=== PATIENT | male | born 1985 | race Caucasian/White ===

== ENCOUNTER 2024-03-05 11:02 | Emergency (ER) | payer BC, SELFPAY ==
[2024-03-05 11:08] VITALS: BP 153/104
[2024-03-05 11:56] VITALS: BMI 28.9
[2024-03-05] MEDS: ZOFRAN 4 MG IV (11:56)
[2024-03-05] MEDS: DILAUDID 1 MG IV (11:57)
[2024-03-05] MEDS: NSS 1000 IV (12:00)
[2024-03-05 12:14] LABS: % Basophils 0.8 % (0-2); % Eosinophils 1.7 % (0-6); % Immature Granulocytes 1.5 % (0-0.5); % Monocytes 6.2 % (1.7-9.3); % Neutrophils 62.8 % (42.2-75.2); Absolute Basophils 0.1 10^3/uL (0-0.2); Absolute Eosinophils 0.1 10^3/uL (0-0.7); Absolute Immature Granulocytes 0.1 10^3/uL (0-0.05); Absolute Lymphocytes 1.9 10^3/uL (1.2-3.4); Absolute Monocytes 0.4 10^3/uL (0.1-0.6); Absolute Neutrophils 4.5 10^3/uL (1.4-6.5); Hematocrit 43.5 % (39.0-52.0); Hemoglobin 15.6 g/dL (13.0-18.0); Mean Corp Hgb Conc. 35.9 g/dL (33.0-37.0); Mean Corpuscular Volume 83.7 fL (80.0-94.0); Mean Platelet Volume 10.5 fL (7.4-10.4); Nucleated Red Blood Cells % 0 % (-); Platelet Count 266 10^3/uL (130-400); Red Cell Dist. Width 12.1 % (11.5-14.5); White Blood Cell Count 7.1 10^3/uL (4.8-10.8)
[2024-03-05] MEDS: TORADOL 15 MG IV (12:33)
[2024-03-05 12:36] LABS: ALT (SGPT) 46 U/L (0-50); AST (SGOT) 34 U/L (17-59); Albumin 4.8 g/dl (3.5-5.0); Alkaline Phosphatase 78 U/L (38-126); Blood Urea Nitrogen 12 mg/dl (9-20); Calcium 9.3 mg/dl (8.4-10.2); Carbon Dioxide 28 mmol/L (22-30); Chloride 102 mmol/L (98-107); Estimated Creatinine Clearance > 125 ml/min; Glucose 99 mg/dl (70-99); Potassium 4.8 mmol/L (3.5-5.1); Sodium 141 mmol/L (135-145); Total Bilirubin 1.1 mg/dl (0.2-1.3); Total Protein 7.4 g/dl (6.3-8.2); eGFR > 60.00
[2024-03-05 12:44] VITALS: BP 127/88
[2024-03-05 12:44] LABS: Urine Albumin Trace (Neg - Trace); Urine Bilirubin Negative (Negative); Urine Character Slightly Cloudy (Clear); Urine Color Amber; Urine Glucose Negative (Negative); Urine Ketone Negative (Negative); Urine Leukocyte Trace (Negative); Urine Nitrite Negative (Negative); Urine Occult Blood 4+ (Negative); Urine Urobilinogen Negative (Neg - 1+)
--- NOTE | 2024-03-05 13:00 | ED.GENMED ---
History of Present Illness
General
Chief Complaint: Abdominal Pain
Source: patient
Exam Limitations: none
Time Seen by Provider: 03/05/24 11:51
Nursing documentation reviewed up to this point in time: agreed with
History of Present Illness
History of Present Illness:
38-year-old male with no reported chronic issues presents to the emergency room for evaluation of abdominal pain. Patient reports pain started rather suddenly yesterday and has been constant since that time although waxing waning intensity. Pain
is in the left lower abdomen radiates across lower abdomen and into the pelvis and towards the tip of his penis. No clear triggering or relieving factors noted. He denies any associated dysuria, hematuria, change in urinary frequency. He denies
any fevers or chills. He has had mild nausea but denies any vomiting or diarrhea/constipation. Denies any scrotal pain or swelling. He denies similar symptoms in the past.
Review of Systems
Review of Systems
All Other Systems: ROS reviewed and negative except as documented in HPI and ROS
Constitutional: Denies fever or chills
Respiratory: Denies trouble breathing
Cardiac: Denies chest pain
ABD/GI: Reports abdominal pain and nausea; Denies vomiting
: Denies dysuria, frequency or flank pain
Musculoskeletal: Denies neck pain or back pain
Neurological: Denies dizzy or headache
Phy Exam
Physical Exam
Physical Exam:
General: Awake, alert, oriented x3; patient appears uncomfortable, cannot find a position of comfort in the room
Head: Normocephalic, atraumatic
Eyes: Conjunctiva normal
Throat: Airway intact, handling secretions
Neck: Trachea midline, supple without meningismus
Lungs: Clear to auscultation bilaterally, no wheezing, rales, rhonchi
Heart: Regular rate and rhythm, no murmurs, gallops, or rubs
Abd: Soft, non distended, minimally tender left lower quadrant
: No scrotal swelling, normal testicular lie, no testicular tenderness, no hernia
Back: No CVA tenderness
Neuro: No gross deficits
Extremities: Warm well-perfused
Scores
Heart Failure Risk
Heart Failure Risk Score: Not Applicable
Heart Score for Chest Pain Patients
STEMI patient?: Not applicable
Withdrawal Assessment of Alcohol
Withdrawal Assessment Completed?: Not applicable
Course
Orders/Labs/Results
Orders:
Orders
03/05/24 11:51
HYDROmorphone [Dilaudid] 1 mg IV NOW STA
Ondansetron Injectable [Zofran] 4 mg IV NOW STA
03/05/24 11:52
CT Abd/pel Without Iv Or Oral Urgent
Comment:
Reason For Exam: lower abd pain
0.9% Sodium Chloride 1000 ml [Nss] 1,000 ml IV BOLUS
03/05/24 11:56
Complete Blood Count/With Diff Urgent
Comprehensive Metabolic Panel Urgent
03/05/24 12:04
Urinalysis Reflex To Culture Urgent
Date Specimen was Collected: 03/05/24
Time Specimen was Collected: 12:03
Urine Microscopic Reflex Cult Urgent
03/05/24 12:31
Ketorolac [Toradol] 15 mg IV NOW STA
Abnormal Lab Results
03/05/24 03/05/24
11:56 12:04
MPV 10.5 H fL
(7.4-10.4)
Abs Immat Gran (auto) 0.1 H 10^3/uL
(0-0.05)
Immature Gran % 1.5 H %
(0-0.5)
Ur Occult Blood Reflex 4+ A
(Negative)
Leukocyte Esterase Rfl Trace A
(Negative)
Urine RBC >100 A /HPF
(0-2)
03/05/24 11:56
03/05/24 11:56
Vital Signs
Initial and Last Documented VS:
Initial Vital Signs
Temp Pulse Resp BP Pulse Ox
36.5 C 67 16 153/104 99
03/05/24 11:08 03/05/24 11:08 03/05/24 11:08 03/05/24 11:08 03/05/24 11:08
Last Documented Vital Signs
Temp Pulse Resp BP Pulse Ox
36.5 C 67 16 127/88 99
03/05/24 11:08 03/05/24 11:08 03/05/24 11:08 03/05/24 12:44 03/05/24 12:46
MDM/Problems Addressed
Differential Diagnosis Includes:
Nephrolithiasis, diverticulitis, UTI
MDM/Problems Addressed:
38-year-old male presents for evaluation of abdominal pain left lower quadrant radiates towards the groin/tip of the penis. Hypertensive otherwise normal vitals. Exam as above. Clinical appearance consistent with nephrolithiasis. Will place an IV
check labs including CBC and a CMP, check urinalysis. Will treat pain provide some antiemetic, IV fluids. Reassess after the above.
Labs reviewed: CBC unremarkable, CMP no clinically significant abnormalities�notably normal creatinine. Urinalysis negative for infection but positive for blood. Awaiting results of CT.
CT shows 3 mm obstructive stone left UVJ. Vital stable, pain controlled, normal renal function, not septic. Reasonable candidate for discharge for trial of passage. Advised to drink plenty of fluids, Flomax, pain control. Strainer provided. All
questions answered.
Acute Exacerbation and/or Progression of Chronic Illness:
Acutely hypertensive likely pain related�improved with pain control, continue to monitor but no additional antihypertensives indicated at present
Acute Exacerbation and/or Progression of Chronic Illness: HTN
*Radiology
Radiology exam reviewed: radiology read reviewed
*Pulse Oximetry
Patient hypoxic: no
*Critical Care Note
Total Time (30-74mins, 75-104mins- exclusive of procedures): Not Applicable
Data Reviewed
Source: patient
ED Attending Note
-
Portions of this chart may have been created with voice recognition software.� Occasional wrong word or��sound alike� substitutions may have occurred due to the inherent limitations of voice recognition software.
Discharge Plan
Departure
Patient Disposition: Home (Routine Discharge)
Date of Disposition: 03/05/24
Time of Disposition: 13:38
Patient with high blood pressure during this ER visit?: Yes
Discharge Problem:
Left nephrolithiasis
Instructions: Kidney Stones (DC)
Prescriptions:
New
tamsulosin [Flomax] 0.4 mg capsule
0.4 mg PO DAILY Qty: 14 0RF
oxycodone 5 mg tablet
5 mg PO Q8H PRN (Reason: Pain) Qty: 14 0RF
Referrals:
Angel Lin MD [Active] - As needed
Maulik Angel MD [Family Provider] -
Activity Restrictions/Additional Instructions:
Thank you for visiting the Emergency Department at [facility].
1. Please schedule a follow up appointment as directed. Call first thing tomorrow morning to make an appointment.
2. If indicated, please take your medications as instructed and indicated on discharge paperwork.
3. If any of your symptoms do not improve, or persist, or become more severe within 6-12 hours, please return to the emergency department for further care.
4. Please return to the emergency department if you develop a headache, neck pain/stiffness, fever greater than 100.4F, chest pain, shortness of breath, persistent nausea, vomiting, slurred speech, difficulty walking, numbness/tingling, weakness,
signs of infection or any other symptoms that are worrisome to you.
Please call [phone] if you have any questions.
Interventions
Interventions:
*Risk Screen - Suicide Last Done: 03/05/24 11:08
*General Assessment Last Done: 03/05/24 11:08
*Neglect/Abuse Screening Last Done: 03/05/24 11:08
ED- Fall Risk Assessment Last Done: 03/05/24 12:02
*ED COVID-19 Vaccine History Last Done: 03/05/24 11:08
PF-Axdaff-Afahbugkif Assessment Last Done: 03/05/24 12:02
Discharge Date and Time
Print Language: MAURITIAN
[2024-03-05 13:01] LABS: Urine Mucus Few
[2024-03-05 13:02] LABS: Urine Calcium Oxalate Crystals Present; Urine Red Blood Cell >100 /HPF (0-2); Urine White Cell 0-2 /HPF (0-5)
[2024-03-05 14:23] VITALS: BP 122/77
== END 2024-03-05 14:24 | disposition home or self-care (01) ==
LOC: EMR 11:02
PROVIDERS: EMERGENCY PHYSICIAN Emergency Medicine; FAMILY PHYSICIAN Family Medicine
DX: N13.2 Hydronephrosis with renal and ureteral calculous obstruction (principal); I10 Essential (primary) hypertension
CPT/HCPCS: 99284; 96374; 96375; 96361; 74176; 80053; 81003; 81015; 85025